=== PATIENT | female | born 1975 | race Caucasian/White ===

== ENCOUNTER 2018-06-19 07:22 | Emergency (ER) | payer MEDICAID ==
[2018-06-19] MEDS ORDERED: CYCLOBENZAPRINE 10MG TABLET PO ONE (07:39)
[2018-06-19] MEDS ORDERED: HYDROCODONE/APAP 5/325MG TABLET PO ONE (07:39)
--- NOTE | 2018-06-19 07:39 | Emergency Department Record ---
History of Present Illness - General Chief Complaint: Neck Injury/Pain Stated Complaint: NECK PAIN Time Seen by Provider: 06/19/18 07:27 Source: Patient Mode of Arrival: Ambulatory Limitations: No limitations - History of Present Illness Initial Comments: 42 yo female presents with a concern of neck pain. She reports left sided pain. The pain has come on gradually over four days. She states the pain is left upper posterior neck. No fevers, chills, cough, swollen glands. No ear pain. No weakness, numbness or tingling. No current radiation down the arm. She had brief radiation about 2 days ago that did not return and is not present. She reports she was diagnosed with a brain tumor about 6 years ago. She reports she was told it was untreatable and she never followed up. A Head CT reported 12/19/15 was normal. No mass or tumor. She does not have symptoms so she states she has no plans of follow up regarding her history of brain tumor. She does not know the specific type of tumor she had been diagnosed with 6 years ago. She has grinding and popping at times when she sees her chiropractor when manipulated. MD Complaint: Neck pain -: Days(s) (4) Place: Home Radiation: Occiput Severity: Moderate Quality: Aching Consistency: Constant Improves With: None Worsens With: Movement of neck Context: Turning/bending Associated Symptoms: None Treatments Prior to Arrival: Acetaminophen, Ibuprofen - Related Data Home Medications Medication Instructions Recorded Confirmed Last Taken Dextroamphetamine/Amphetamine 10 mg PO DAILY 06/19/18 06/19/18 Unknown [Dextroamp-Amphet ER 10 mg Cap] Venlafaxine HCl [Venlafaxine HCl 37.5 mg PO DAILY 06/19/18 06/19/18 Unknown ER] Previous Rx's Medication Instructions Recorded Cyclobenzaprine HCl [Flexeril] 10 mg PO TID #15 tablet 06/19/18 Methylprednisolone [Medrol Dose 0 mg PO UD #1 tab.ds.pk 06/19/18 Pack] Ondansetron [Zofran Odt] 4 mg PO NOW #20 tab.rapdis 06/19/18 Allergies Allergy/AdvReac Type Severity Reaction Status Date / Time No Known Drug Allergies Allergy Unverified 04/01/18 19:25 Review of Systems Constitutional: Denies: Chills, Fever, Malaise, Weakness Eyes: Denies: Eye discharge, Eye pain, Photophobia, Vision change ENT: Denies: Congestion, Throat pain Respiratory: Denies: Cough, Dyspnea Cardiovascular: Denies: Chest pain, Palpitations, Syncope Endocrine: Denies: Fatigue Gastrointestinal: Denies: Abdominal pain, Diarrhea, Nausea, Vomiting Genitourinary: Denies: Dysuria, Urgency Musculoskeletal: Reports: As per HPI, Myalgia, Neck pain Skin: Denies: Bruising, Change in color, Rash Neurological: Denies: Abnormal gait, Headache, Numbness, Paresthesias, Tingling , Tremors, Vertigo, Weakness Psychiatric: Denies: Anxiety Hematological/Lymphatic: Denies: Blood Clots, Easy bleeding, Easy bruising, Swollen glands Past Medical History - SOCIAL HISTORY Smoking Status: Never smoker Drug Use: None - RESPIRATORY Hx Respiratory Disorders: Yes Hx Asthma: Yes - CARDIOVASCULAR Hx Cardio Disorders: Yes Hx Hypertension: Yes - NEURO Hx Neuro Disorders: Yes Comment:: brain tumor - GI Hx GI Disorders: No - Hx Genitourinary Disorders: Yes Hx UTI: Yes - ENDOCRINE Hx Endocrine Disorders: Yes Hx Thyroid Disease: Yes (hypothyroid) - MUSCULOSKELETAL Hx Musculoskeletal Disorders: Yes - PSYCH Hx Psych Problems: No - HEMATOLOGY/ONCOLOGY Hx Hematology/Oncology Disorders: No Physical Exam - General General Appearance: Alert, Oriented x3, Cooperative, No acute distress Limitations: No limitations - Head Head exam: Atraumatic, Normocephalic, Normal inspection - Eye Eye exam: Normal appearance, PERRL. negative: Conjunctival injection, Scleral icterus - ENT ENT exam: Normal exam, Mucous membranes moist Ear exam: Normal external inspection Nasal Exam: Normal inspection Mouth exam: Normal external inspection - Neck Neck exam: Normal inspection, Tenderness, Other (Left Radial, Median, Ulnar motor and sensory funciton are intact, biceps, triceps, traps intact, claim trainee is 5/ 5, symmetric reflexes). negative: Full ROM (near full range, mild limitation with extremes of turning. She has symmetric turning and flexion and extension not limit in any particular direction), Lymphadenopathy, Meningismus, Thyromegaly - Respiratory Respiratory exam: Normal lung sounds bilaterally. negative: Respiratory distress, Rhonchi, Stridor, Wheezes - Cardiovascular Cardiovascular Exam: Regular rate, Normal rhythm, Normal heart sounds Peripheral Pulses: 2+: Radial (R), Radial (L) - GI/Abdominal GI/Abdominal exam: Soft. negative: Tenderness - Rectal Rectal exam: Deferred - exam: Deferred - Extremities Extremities exam: Normal inspection, Full ROM. negative: Calf tenderness, Joint swelling, Normal capillary refill, Pedal edema, Tenderness - Back Back exam: Reports: Normal inspection. Denies: CVA tenderness (R), CVA tenderness (L) - Neurological Neurological exam: Alert, CN II-XII intact, Normal gait, Oriented X3, Reflexes normal. negative: Abnormal gait, Altered, Motor sensory deficit - Psychiatric Psychiatric exam: Normal affect, Normal mood. negative: Agitated, Anxious - Skin Skin exam: Dry, Intact, Normal color, Warm. negative: Abrasion, Cyanosis Course - Reevaluation(s) Reevaluation #1: The examination is consistent with musculo-skeletal No neurologic signs or symptoms No fevers or trauma Normal HCT in 2016 - diagnosed per patient with a brain tumor about 6 years ago. 06/19/18 07:50 06/19/18 08:17 The Cervical XR was reviewed: Prelim read is multi level degenerative changes, We discussed the results, need to establish a follow up PCP, and possible further testing if the symptoms do not improve. We discussed home care and reasons for return for immediate evaluation. 06/19/18 08:26 Disposition Disposition: Discharge Clinical Impression: Cervical strain, acute Disposition: Home, Self-Care Condition: (1) Good Instructions: Cervical Sprain (ED) Additional Instructions: Call for a new family doctor for the next available follow up appointment Return to the ER for a recheck if worse, any new concerns or questions Take the prescriptions provided as directed Review this ER visit and the tests performed with your family doctor at your follow up appointment If your pain continues you may require further testing with MRI Prescriptions: Cyclobenzaprine HCl [Flexeril] 10 mg PO TID #15 tablet Methylprednisolone [Medrol Dose Pack] 0 mg PO UD #1 tab.ds.pk Ondansetron [Zofran Odt] 4 mg PO NOW #20 tab.rapdis Referrals: PAM BERUMEN M.D. [MEDICAL DOCTOR] - Forms: Patient Portal Access Time of Disposition: 08:17 Quality - Quality Measures Quality Measures: N/A - Blood Pressure Screening Does Patient Have Any of the Following: No Blood Pressure Classification: Hypertensive Reading Systolic Measurement: 168 Diastolic Measurement: 131 Screening for High Blood Pressure: < Pre-Hypertensive BP, F/U Documented > [ [id number]] Pre-Hypertensive Follow-up Interventions: Referral to alternative/primary care provider.
--- NOTE | 2018-06-21 07:28 | RADIOLOGY REPORT ---
EXAM: CERVICAL SPINE HISTORY: POSTERIOR NECK PAIN FOR FOUR DAYS. TECHNIQUE: Five views of the cervical spine were obtained. Comparison: None. FINDINGS: The cervical vertebral body heights appear maintained. Reversal of the cervical lordosis, alignment appears otherwise maintained. The prevertebral soft tissues are not appreciably thickened. Multilevel facet arthrosis. Minimal anterior end plate osteophytes at multiple levels. No significant focal disk space height loss is appreciated. No significant neural foraminal narrowing appreciated on oblique views. IMPRESSION: MILD CERVICAL SPINE DEGENERATIVE FINDINGS. JOB NUMBER: [id number] [facility]
== END 2018-06-19 08:43 | disposition home or self-care (01) ==
LOC: ER 07:22
DX: S16.1XXA Strain of muscle, fascia and tendon at neck level, initial encounter (principal); X58.XXXA Exposure to other specified factors, initial encounter; Y92.009 Unspecified place in unspecified non-institutional (private) residence as the place of occurrence of the external cause; I10 Essential (primary) hypertension
CPT/HCPCS: 72050; 99283